=== PATIENT | female | born 1925 | race Caucasian/White ===

== ENCOUNTER 2017-03-31 15:22 | Inpatient (IN) | payer OTHER, BC ==
--- NOTE | 2017-03-31 16:21 | EDPHY ---
H & P Time Seen by Provider: 03/31/17 16:15 HPI/ROS: Chief complaint. Difficulty speaking HPI. 89-year-old female was discovered by her daughter to have difficulty speaking on the telephone 3 days ago. Her speech is better but continues to be slightly slurred. She had difficulty writing a letter 2 days ago and her hand writing head significantly changed. No leg symptoms or difficulty walking. No chest discomfort, trouble breathing, abdominal pain. No headache or change in vision. ROS Constitutional. no fever/chills, no weakness Eyes. no problems with vision ENT. no sore throat, no nasal drainage Cardiovascular. no chest pain Respiratory. no shortness of breath, no cough Abdominal. no abdominal pain, no nausea/vomiting, no diarrhea . no problems urinating MS. no calf pain/swelling, no neck/back pain, no joint pain Skin. no rash Lymph. no swollen glands Neuro. Slurred speech and difficulty writing with right hand Past Medical/Surgical History: Past medical history atrial fibrillation, hypertension, diabetes, heart valve replacement, previous CVA Social History: , nonsmoker, no alcohol Smoking Status: Never smoked Physical Exam: General Appearance: Alert well-developed female mild distress vital signs are stable Eyes: Pupils equal and round no pallor or injection. ENT, Mouth: Mucous membranes are moist. Respiratory: There are no retractions, lungs are clear to auscultation. Cardiovascular: Regular rate and rhythm. Gastrointestinal: Abdomen is soft and nontender, no masses, bowel sounds normal. Neurological: Awake and alert, sensory and motor exams grossly normal. Speech is fairly normal. Cranial nerves intact. There is no pronator drift. Some ataxia with the right pointer finger. Left [id number]-jd-[id number] is normal. Normal ubqb-ez-vwje bilaterally Skin: Warm and dry, no rashes. Musculoskeletal: Neck is supple nontender. Extremities symmetrical, full range of motion. Psychiatric: Patient is oriented X 3, there is no agitation. Constitutional: Initial Vital Signs Temperature (C) 36.2 C 03/31/17 15:26 Heart Rate 65 03/31/17 15:26 Respiratory Rate 16 03/31/17 15:26 Blood Pressure 182/61 H 03/31/17 15:26 O2 Sat (%) 95 03/31/17 15:26 O2 Delivery Mode Nasal Cannula Allergies/Adverse Reactions: niacin Allergy (Verified 03/31/17 15:30) Penicillins Allergy (Verified 03/31/17 15:30) Home Medications: Medication Instructions Recorded Escitalopram Oxalate 03/31/17 Furosemide [Lasix] 03/31/17 Metformin HCl [Metformin 1000 mg] 03/31/17 Metoprolol Tartrate [Lopressor 25 03/31/17 mg (*)] Potassium 03/31/17 Warfarin Sodium [Coumadin] 03/31/17 Medical Decision Making - Diagnostics EKG Interpretation: EKG interpreted by me shows normal sinus rhythm with normal interval. There is left axis deviation. LVH by voltage. No arrhythmia. No ST elevation or depression. Rate is 64 Imaging Results: Imaging Impressions Head CT 03/31/17 16:34 Impression: 1. Hypodensity in the left basal ganglia suggesting subacute infarct. If symptoms persist and clinical suspicion warrants, consider MRI. 2. Age-indeterminate infarct in the anterior right basal ganglia, possibly subacute or related to a small old lacunar infarct. 3. Diffuse cerebral atrophy with periventricular and subcortical low attenuation consistent with chronic microvascular ischemic gliosis. 3. Additional findings as above. Findings discussed with Dr. Zacarias Elena on 03/31/2017 at [address] shows what appears to be a subacute left basal ganglia infarct. No hemorrhage Procedures: IV normal saline, monitor ED Course/Re-evaluation: I consulted and discussed case with Dr. Castillo, neurology, who recommends admission due to subtherapeutic INR and further workup for carotid ultrasound and echo I consulted and discussed case with Dr. annie Swift, hospitalist, who agrees to the admission Re-evaluation 6:40 p.m. I discussed findings with the patient and her daughter. We discussed treatment plan including recommendation for admission. They expressed understanding and agreement Differential Diagnosis: CVA-- and I considered hemorrhagic as the patient is on Coumadin verses thrombotic. No evidence for intracranial bleeding - Data Points Laboratory Results: Laboratory Results 03/31/17 15:50 03/31/17 15:50 03/31/17 03/31/17 03/31/17 15:50 15:50 15:50 WBC 7.91 10^3/uL 10^3/uL (3.80-9.50) RBC 4.42 10^6/uL 10^6/uL (4.18-5.33) Hgb 12.9 g/dL g/dL (12.6-16.3) Hct 39.2 % % (38.0-47.0) MCV 88.7 fL fL (81.5-99.8) MCH 29.2 pg pg (27.9-34.1) MCHC 32.9 g/dL g/dL (32.4-36.7) RDW 14.0 % % (11.5-15.2) Plt Count 217 10^3/uL 10^3/uL (150-400) MPV 10.9 fL fL (8.7-11.7) Neut % (Auto) 46.4 % % (39.3-74.2) Lymph % (Auto) 33.4 % % (15.0-45.0) Thomas % (Auto) 11.6 % % (4.5-13.0) Eos % (Auto) 7.1 % % (0.6-7.6) Baso % (Auto) 1.1 % % (0.3-1.7) Nucleat RBC Rel Count 0.0 % % (0.0-0.2) Absolute Neuts (auto) 3.67 10^3/uL 10^3/uL (1.70-6.50) Absolute Lymphs (auto) 2.64 10^3/uL 10^3/uL (1.00-3.00) Absolute Monos (auto) 0.92 10^3/uL H 10^3/uL (0.30-0.80) Absolute Eos (auto) 0.56 10^3/uL H 10^3/uL (0.03-0.40) Absolute Basos (auto) 0.09 10^3/uL 10^3/uL (0.02-0.10) Absolute Nucleated RBC 0.00 10^3/uL 10^3/uL (0-0.01) Immature Gran % 0.4 % % (0.0-1.1) Immature Gran # 0.03 10^3/uL 10^3/uL (0.00-0.10) PT 21.7 SEC H SEC (12.0-15.0) INR 1.88 H (0.83-1.16) Sodium 140 mEq/L mEq/L (134-144) Potassium 5.2 mEq/L mEq/L (3.5-5.2) Chloride 106 mEq/L mEq/L (97-110) Carbon Dioxide 21 mEq/l L mEq/l (22-31) Anion Gap 13 mEq/L mEq/L (8-16) BUN 30 mg/dL H mg/dL (7-23) Creatinine 1.0 mg/dL mg/dL (0.6-1.0) Estimated GFR 52 Glucose 119 mg/dL H mg/dL (70-100) Calcium 9.1 mg/dL mg/dL (8.5-10.4) Troponin I < 0.012 ng/mL ng/mL (0-0.034) Departure - Departure Disposition: [facility] Inpatient Acute Clinical Impression: Acute ischemic stroke Condition: Fair Referrals: Rae Groves MD [Primary Care Provider] - As per Instructions
--- NOTE | 2017-03-31 16:25 | CPEKG ---
Heart Rate: 64 RR Interval: 938 P-R Interval: 168 QRSD Interval: 90 QT Interval: 484 QTC Interval: 500 P [place]: -7 QRS [place]: 5 T Wave [place]: 150 EKG Severity - ABNORMAL ECG - EKG Impression: SINUS RHYTHM EKG Impression: PROBABLE LEFT ATRIAL ABNORMALITY EKG Impression: LVH WITH SECONDARY REPOLARIZATION ABNORMALITY EKG Impression: BORDERLINE PROLONGED QT INTERVAL Electronically Signed By: Zacarias Elena 31-Mar-2017 17:15:22
[2017-03-31 16:39] LABS: % IMMATURE GRANULYOCYTES 0.4 % (0.0-1.1); ABSOLUTE IMMATURE GRANULOCYTES 0.03 10^3/uL (0.00-0.10); ADD DIFF? NO; ADD MORPH? NO; ADD SCAN? NO; ATYPICAL LYMPHOCYTE FLAG 0 (0-99); FRAGMENT RBC FLAG 0 (0-99); HEMATOCRIT 39.2 % (38.0-47.0); HEMOGLOBIN 12.9 g/dL (12.6-16.3); LEFT SHIFT FLG 0 (0-99); LIPEMIA HEMOLYSIS FLAG 80 (0-99); MEAN CELL HEMOGLOBIN 29.2 pg (27.9-34.1); MEAN CELL HEMOGLOBIN CONCENTR. 32.9 g/dL (32.4-36.7); MEAN CELL VOLUME 88.7 fL (81.5-99.8); MEAN PLATELET VOLUME 10.9 fL (8.7-11.7); PLATELET CLUMPS FLAG 10 (0-99); PLATELET COUNT 217 10^3/uL (150-400); RED BLOOD CELL COUNT 4.42 10^6/uL (4.18-5.33)
[2017-03-31 16:47] LABS: ANION GAP 13 mEq/L (8-16); CALCIUM 9.1 mg/dL (8.5-10.4); CARBON DIOXIDE 21 mEq/l (22-31); CHLORIDE 106 mEq/L (97-110); GLOMERULAR FILTRATION RATE 52; GLUCOSE 119 mg/dL (70-100); INR 1.88 (0.83-1.16); POTASSIUM 5.2 mEq/L (3.5-5.2); PROTIME(PATIENT) 21.7 SEC (12.0-15.0); SODIUM 140 mEq/L (134-144)
[2017-03-31 16:58] LABS: TROPONIN I < 0.012 ng/mL (0-0.034)
[2017-03-31] MEDS ORDERED: ACETAMINOPHEN 325 MG TAB PO PRN (20:10)
[2017-03-31] MEDS ORDERED: ONDANSETRON DISINTEGRATING 4 MG TAB PO PRN (20:10)
[2017-03-31] MEDS ORDERED: ONDANSETRON 4 MG/2 ML VIAL IVP PRN (20:10)
[2017-03-31] MEDS ORDERED: IOPAMIDOL (ISOVUE 370) 100 ML BTL IV ONE (20:28)
[2017-03-31] MEDS ORDERED: WARFARIN SODIUM 5 MG TAB PO SCH (20:30)
[2017-03-31] MEDS: METOPROLOL TARTRATE 100 MG TAB PO SCH (22:58)
[2017-03-31] MEDS: ENOXAPARIN 40 MG/0.4 ML SYR SC SCH (23:00)
[2017-04-01 05:51] LABS: INR 1.86 (0.83-1.16); PROTIME(PATIENT) 21.5 SEC (12.0-15.0)
[2017-04-01 05:56] LABS: ANION GAP 11 mEq/L (8-16); CARBON DIOXIDE 23 mEq/l (22-31); CHLORIDE 108 mEq/L (97-110); CHOLESTEROL 254 mg/dL (140-220); CHOLESTEROL/HDL RATIO 7.06 RATIO (1.00-4.44); GLOMERULAR FILTRATION RATE 52; GLUCOSE 107 mg/dL (70-100); HIGH DENSITY LIPOPROTEIN 36 mg/dL (40-85); NON-HIGH DENSITY LIPOPROTEIN 218 mg/dL (90-129); POTASSIUM 4.8 mEq/L (3.5-5.2); SODIUM 142 mEq/L (134-144)
[2017-04-01 06:06] LABS: TRIGLYCERIDE 408 mg/dL (35-135)
--- NOTE | 2017-04-01 06:46 | GHP ---
[f rep st] HISTORY AND PHYSICAL DATE OF ADMISSION: 03/31/2017 CHIEF COMPLAINT: Slurred speech and hand writing change. HISTORY: Angelina Helton is an 89-year-old female who noticed 2 days ago as she was doing a hand-written note to a family member that her hand writing had changed. It was small, scribbly, and illegible. She had always prided herself in her good handwriting. The next day, she told her daughter about this episode , and her daughter mentions that on the phone 3 days ago she had thought her speech was a little slurred and she was having difficulty talking. At this time , her speech has improved with some possible mild residual. Her handwriting is still abnormal. She denies any weakness in her arms or legs. She denies any neck pain. She denies any missed Coumadin doses. PAST MEDICAL HISTORY: 1. Atrial fibrillation. 2. Bioprosthetic aortic valve replacement 2014 in [place]. 3. Hypertension. 4. Diabetes type 2. 5. History of stroke. MEDICATIONS: Please see computer record for full detailed list. ALLERGIES: Niacin and penicillin. SOCIAL HISTORY: She quit smoking in 1956. No alcohol. She lives in independent living at [facility]. She moved here from [place] 15 months ago. REVIEW OF SYSTEMS: Complete review of systems obtained. Review of systems is negative regarding constitutional, HEENT, GI, pulmonary, cardiovascular, , hematology, skin, muscular, endocrine, psych except for positives and negatives as in HPI. FAMILY HISTORY: Reviewed and noncontributory to present complaint. PHYSICAL EXAMINATION: GENERAL: A well-developed, well-nourished female in no acute distress. VITAL SIGNS: Temperature is 36.4, pulse 60, blood pressure 165 /76, saturating 97% on room air. EYES: Normal conjunctivae, pupils react to light. ENT: Normal ears and nose. Hearing intact. Normal teeth. Oropharynx moist. NECK: Trachea midline. No thyromegaly. CHEST: Normal effort. LUNGS : Clear to auscultation bilaterally. CARDIOVASCULAR: Regular rhythm. No murmur. No lower extremity edema. ABDOMEN: Soft, nontender. No hepatosplenomegaly. SKIN: Warm, dry, intact. No rash. MUSCULOSKELETAL: No cyanosis or clubbing. Strength 5/5 upper and lower extremities. NEUROLOGIC: Cranial nerves intact. Normal sensation to light touch. PSYCH: The patient is alert and oriented x3. Normal affect. Normal judgment. Normal memory. LABORATORY DATA: White count 7.9, hematocrit 39.2, platelets 217. Sodium 140, potassium 5.2, chloride 106, bicarb 21, BUN 30, creatinine 1.0, glucose 119. Troponin is negative. INR is 1.88. IMAGING: EKG viewed by me. My personal interpretation is normal sinus rhythm, LVH with repolarization changes. Head CT shows a subacute infarct in the left basal ganglia. MRI of the brain shows an acute and subacute left thalamus stroke. Neck CT shows severe spinal stenosis at C5-C6. CTA of the head and neck otherwise unremarkable. ASSESSMENT/PLAN: 1. Subacute stroke. This is embolic due to her subtherapeutic INR. Will increase her warfarin. She was given a 1-time 40 mg dose of Lovenox tonight. We need to discuss with Neurology in the morning whether or not it will be safe to prescribe full-dose Lovenox as a bridge until her INR is therapeutic. We need Neurology to weigh her anticoagulation needs against the risk of hemorrhagic conversion of the current stroke. I suspect it is quite small and bridging therapy may be appropriate. We will check an echocardiogram. 2. Atrial fibrillation. Continue her oral metoprolol and anticoagulation as above. 3. Severe cervical spinal stenosis. This appears to be asymptomatic and an incidental finding on imaging. I would however consider Neurosurgery consultation. 4. Bioprosthetic aortic valve replacement. The echocardiogram will re- evaluate. CODE STATUS: She requests DNR. ADMISSION STATUS: 1. Will admit to inpatient. Anticipate greater than 2 midnights needed for stabilization. 2. DVT prophylaxis: Anticoagulation plan as above. /[id number]/MODL MTDD
[2017-04-01] MEDS ORDERED: ENOXAPARIN 40 MG/0.4 ML SYR SC SCH (09:00)
[2017-04-01] MEDS: METOPROLOL TARTRATE 100 MG TAB PO SCH ×2 (09:30→21:09)
[2017-04-01] MEDS: ESCITALOPRAM OXALATE 10 MG TAB PO SCH (09:30)
[2017-04-01] MEDS: ENOXAPARIN 40 MG/0.4 ML SYR SC SCH (09:30)
[2017-04-01] MEDS: WARFARIN SODIUM 3 MG TAB PO SCH (09:31)
[2017-04-01 09:48] LABS: HEMOGLOBIN A1C 6.6 % (4.0-6.0)
--- NOTE | 2017-04-01 11:03 | CPEKG ---
Heart Rate: 52 RR Interval: 1154 P-R Interval: 184 QRSD Interval: 90 QT Interval: 512 QTC Interval: 477 P [place]: 67 QRS [place]: 41 T Wave [place]: 165 EKG Severity - ABNORMAL ECG - EKG Impression: SINUS RHYTHM EKG Impression: PROBABLE LEFT ATRIAL ABNORMALITY EKG Impression: PROBABLE LVH WITH SECONDARY REPOL ABNRM Electronically Signed By: Cindy Grayson 01-Apr-2017 17:00:28
--- NOTE | 2017-04-01 11:26 | HOSPPROG ---
Hospitalist Progress Note Assessment/Plan: Patient is an 89-year-old female noticed 2 days prior to admission that her handwriting has changed. Had become eligible. She told her daughter about the episode and the daughter brought her in for further care today is my 1st encounter with the patient. Chart reviewed. * subacute stroke/thalamus stroke * possibly an embolic stroke due to her subtherapeutic INR * Will discuss with Neurology if okay to bridge the patient with Lovenox while she is subtherapeutic, main concern is of hemorrhagic conversion of the current stroke * Echocardiogram is pending * A1c is 6.6 with an average glucose of 143 * Triglycerides are elevated at 408, cholesterol is 254. LDL is not noted in the lab/unable to get this # due to high triglycerides/recommended a statin / daughter and patient want to think about it * Head CT shows a subacute infarct in the left basal ganglia * CTA of the head and neck overall unremarkable except for severe spinal stenosis at C5-C6 * hypertension uncontrolled add low dose norvasc will allow for permissive htn in the setting of a stroke * atrial fibrillation Reviewed the history monitor she is in sinus * bioprosthetic aortic valve replacement Echocardiogram pending *Plan: will await input from neurology Subjective: Angelina is feeling well/ has no complaints. Objective: Vital Signs Temp Pulse Resp BP Pulse Ox 36.7 C 61 16 191/43 H 92 04/01/17 09:04 04/01/17 09:30 04/01/17 09:04 04/01/17 09:30 04/01/17 09:04 Laboratory Results 04/01/17 05:03 03/31/17 04/01/17 04/02/17 05:59 05:59 05:59 Intake Total 150 300 Output Total 600 Balance -450 300 PT 21.5 SEC (12.0-15.0) H 04/01/17 05:03 INR 1.86 (0.83-1.16) H 04/01/17 05:03 - Physical Exam Constitutional: no apparent distress, appears nourished, not in pain Eyes: PERRL Ears, Nose, Mouth, Throat: hearing normal Cardiovascular: regular rate and rhythym Respiratory: no respiratory distress Skin: warm Musculoskeletal: full muscle strength Neurologic: AAOx3, sensation intact bilaterally, CN II-XII Intact, No pronator drift, No facial droop Psychiatric: interacting appropriately, not anxious, not encephalopathic ICD10 Worksheet Patient Problems: Problems Problem Status Onset Acute ischemic stroke Acute
[2017-04-01] MEDS ORDERED: ENOXAPARIN 60 MG/0.6 ML SYR SC SCH (14:30)
[2017-04-01] MEDS ORDERED: WARFARIN SODIUM 3 MG TAB PO SCH (16:00)
[2017-04-01] MEDS: ATORVASTATIN CALCIUM 10 MG TAB PO SCH (16:17)
[2017-04-01 16:32] LABS: ALBUMIN 3.8 g/dL (3.5-5.0); BILIRUBIN,TOTAL 0.6 mg/dL (0.1-1.4); BILIRUBIN-CONJUGATED 0.4 mg/dL (0.0-0.5); BILIRUBIN-UNCONJUGATED 0.2 mg/dL (0.0-1.1); TOTAL PROTEIN 6.3 g/dL (6.3-8.2)
--- NOTE | 2017-04-01 17:27 | ECHO ---
[id number] + + [address] : : [place] [address] : : [phone] + + Adult Echocardiographic Report + -----+ :Name: Tiera W[place] Date: 04/01/2017 07:50 AM : : Hospital Admission Number: [id number] Location : 362: :: 1925 Gender: Female Height: 66 in : :Age: 89 yrs Race: WH Weight: 142 lb : :Reason For Study: Ischemic stroke : : BSA: 1.7 meters2 : :History: TAVR : + -----+ MMode/2D Measurements \T\ Calculations IVSd: 1.1 cm LVIDd: 5.3 cm FS: 47.0 % Ao root diam: LVPWd: 1.0 cm LVIDs: 2.8 cm EDV(Teich): 3.3 cm 133.8 ml LA dimension: ESV(Teich): 4.1 cm 29.5 ml EF(Teich): 78.0 % LVLd ap4: 8.3 cm SV(MOD-sp4): EDV(MOD-sp4): 56.0 ml 84.0 ml LVLs ap4: 6.7 cm ESV(MOD-sp4): 28.0 ml EF(MOD-sp4): 66.7 % Normal Measurement Values: + + :LVIDd (3.5-5.7cm) IVSd (0.6-1.1cm) LVPWd (0.6-1.1cm) Aortic Root (2.0-3.7cm)Left Atrium (1.5-4.0cm): :LV Vol(d) (76-115ml) LV Vol(s) (29-48ml) Ejec Fraction (50-65%)PV Jeet (0.6- 1.2m/s) TV Jeet (0.4-1.0m/s) : :MV E Jeet (0.8-1.0m/s)MV A Jeet (0.3-1.0m/s)LVOT Jeet (0.7-1.2m/s) Asc Ao Jeet ( 0.9-1.8m/s) : + + Doppler Measurements \T\ Calculations MV E max jeet: Ao mean PG: AI max jeet: LV V1 mean P.5 cm/sec 12.5 mmHg 437.1 cm/sec 3.5 mmHg MV A max jeet: Ao V2 mean: AI max P.4 mmHg LV V1 mean: 139.2 cm/sec 168.8 cm/sec AI dec slope: 89.9 cm/sec MV E/A: 0.56 Ao V2 VTI: 70.7 cm264.6 cm/sec2 LV V1 VTI: AI P1/2t: 483.9 msec 36.7 cm TR max jeet: 286.4 cm/sec TR max P.8 mmHg RAP systole: 10.0 mmHg RVSP(TR): 42.8 mmHg Left Ventricle The left ventricle is normal in size. There is mild concentric left ventricular hypertrophy. Left ventricular systolic function is normal. Ejection Fraction = 60-65%. There is Doppler evidence for diastolic dysfunction. No regional wall motion abnormalities noted. Right Ventricle The right ventricle is normal in size and function. Atria The left atrium is moderately dilated. Right atrial size is normal. Injection of contrast documented no interatrial shunt. Mitral Valve Calcified mitral apparatus. There is no evidence of mitral valve prolapse. There is no mitral valve stenosis. There is mild mitral regurgitation. Tricuspid Valve Normal tricuspid valve. There is mild tricuspid regurgitation. Right ventricular systolic pressure is 38-43mmHg. Aortic Valve Mild valvular aortic stenosis. AV max PG is 25mmHG. AV mean PG is 13mmHG. Moderate aortic regurgitation. There is a bioprosthetic aortic valve. Pulmonic Valve The pulmonic valve is normal in structure and function. Mild pulmonic valvular regurgitation. Great Vessels The aortic root is normal size. Pericardium/Pleural There is no pericardial effusion. Conclusion A complete two-dimensional transthoracic echocardiogram was performed (2D, M-mode, Doppler and color flow Doppler). Left ventricular systolic function is normal. Ejection Fraction = 60-65%. There is mild concentric left ventricular hypertrophy. There is Doppler evidence for diastolic dysfunction. The left atrium is moderately dilated. There is a bioprosthetic aortic valve. (TAVR from 2015.) Mild valvular aortic stenosis. AV max PG is 25mmHG. AV mean PG is 13mmHG. Moderate aortic regurgitation which is paravalvular. Calcified mitral apparatus. There is mild mitral regurgitation. There is mild tricuspid regurgitation. Right ventricular systolic pressure is 38-43mmHg. Mild pulmonic valvular regurgitation. Injection of agitated saline contrast documented no intracardiac shunt. Final Reading Physician: Cinda Guzman signed on 04/01/2017 05:26 PM Ordering Physician: Ronda Son Performed By: Danna Monsalve, PAL
[2017-04-01] MEDS: ENOXAPARIN 60 MG/0.6 ML SYR SC SCH (21:08)
--- NOTE | 2017-04-01 21:18 | GCON ---
[f rep st] CONSULTATION DATE OF CONSULTATION: 04/01/2017 REFERRING PHYSICIAN: Dr. Casey CHIEF COMPLAINT: Stroke. BILLING INFORMATION: 50 minutes total floor time today, over 50% in counseling patient, reviewing records, literature, and neuroimaging. HISTORY OF PRESENT ILLNESS: This patient is a very pleasant 89-year-old lady with known paroxysmal atrial fibrillation on chronic oral anticoagulation with Coumadin. Last , she had onset of slurred speech noticed by her daughter, which slowly improved. She was brought to the emergency department yesterday for these symptoms. Ultimately, she had a brain MRI which confirmed a subacute left thalamic infarct. She did not have any other symptoms, such as right-sided hemianesthesia or paresis. Her symptoms are almost completely resolved now. On examination in the emergency department, her INR was found to be subtherapeutic at 1.88. Therefore she was admitted for correction of her INR. CT of the head and neck showed no acute vascular findings. Blood pressure has been somewhat elevated up to the 190s, but then back into the 150s here. Total cholesterol is elevated, LDL unmeasurable, triglycerides 408. PAST MEDICAL HISTORY: AFib, dyslipidemia, hypertension. MEDICATIONS: Please see EHR for full list. ALLERGIES: Niacin, penicillin. SOCIAL HISTORY: Quit smoking in 1956. Lives in independent living at [facility]. REVIEW OF SYSTEMS: Ten-point review of systems was done and only pertinent to the HPI. FAMILY HISTORY: Reviewed and noncontributory. PHYSICAL EXAMINATION: VITAL SIGNS: Blood pressure 151 systolic over 76, heart rate 61, temperature 36.6. GENERAL: No acute distress. Very pleasant lady. MENTAL FUNCTION: She is lucid, no aphasia. Cranial nerve exam, normal facial expression, no facial weakness on exam, normal extraocular movements. No dysarthria on exam today. On motor exam, she has no focal weakness. Sensory exam normal to light touch throughout. Coordination normal in upper and lower extremities. IMPRESSION/PLAN: 1. Subacute left thalamic infarct. 2. Paroxysmal atrial fibrillation on oral anticoagulation. 3. Subtherapeutic INR. 4. Hypertension. This patient may have had this infarct from a subtherapeutic INR related to her underlying paroxysmal atrial fibrillation. Certainly, uncontrolled hypertension can lead to lacunar-type infarcts as well. Discussed at length with the patient. My overall recommendation is correction of her INR to 2 to 3 with adjustment of warfarin. As the stroke did occur 3 days ago and is small in size, we can go ahead and start hrm-ulwwqfzcy-itteln heparin to bridge her until she is therapeutic on her INR and discharge her home. My other main recommendation is tight control of her blood pressure to minimize recurrence of any small vessel disease. Oral anticoagulation is sufficient in terms of vascular prophylaxis for both types of events outside of controlling hypertension. She also has been recommended to start statin therapy for her dyslipidemia. She is agreeable. She will likely discharge later today. No further recommendations. The risks, benefits and scientific literature of adding aspirin to warfarin was discussed with the patient as well. Based on the data and her specific clinical presentation, we decided together to stay of therapeutic oral anticoagulation alone. This is reasonable. Thank you for this consultation. /[id number]/MODL MTDD
[2017-04-02 06:13] LABS: INR 1.98 (0.83-1.16); PROTIME(PATIENT) 22.6 SEC (12.0-15.0)
[2017-04-02 07:28] VITALS: RESP 18
--- NOTE | 2017-04-02 08:12 | HOSPPROG ---
Hospitalist Progress Note Assessment/Plan: Patient is an 89-year-old female noticed 2 days prior to admission that her handwriting has changed. Had become eligible. She told her daughter about the episode and the daughter brought her in for further care. * subacute left thalamic stroke * possibly an embolic stroke due to her subtherapeutic INR or from htn * Will discuss with Neurology if okay to bridge the patient with Lovenox while she is subtherapeutic, main concern is of hemorrhagic conversion of the current stroke * Echocardiogram shows no intracardiac shunt * A1c is 6.6 with an average glucose of 143 * Triglycerides are elevated at 408, cholesterol is 254. LDL is not noted in the lab/unable to get this # due to high triglycerides/statin * Head CT shows a subacute infarct in the left basal ganglia * CTA of the head and neck overall unremarkable except for severe spinal stenosis at C5-C6 * hypertension uncontrolled increased norvasc dose * atrial fibrillation Reviewed the history monitor she is in sinus * bioprosthetic aortic valve replacement *Plan: dc today/ bridge therapy for another few days until INR is >2 Subjective: Angelina is tired, didn't sleep well. Objective: Vital Signs Temp Pulse Resp BP Pulse Ox 36.7 C 53 L 18 180/54 H 95 04/02/17 07:27 04/02/17 07:27 04/02/17 07:27 04/02/17 07:27 04/02/17 07:27 Laboratory Results 04/01/17 05:03 04/01/17 04/02/17 04/03/17 05:59 05:59 05:59 Intake Total 150 1100 Output Total 600 500 Balance -450 600 PT 22.6 SEC (12.0-15.0) H 04/02/17 05:26 INR 1.98 (0.83-1.16) H 04/02/17 05:26 - Physical Exam Constitutional: no apparent distress, appears nourished, not in pain Eyes: PERRL Ears, Nose, Mouth, Throat: hearing normal Cardiovascular: regular rate and rhythym Respiratory: no respiratory distress Skin: warm Musculoskeletal: full muscle strength Neurologic: AAOx3, CN II-XII Intact, No facial droop Psychiatric: interacting appropriately ICD10 Worksheet Patient Problems: Problems Problem Status Onset Acute ischemic stroke Acute
[2017-04-02] MEDS: WARFARIN SODIUM 3 MG TAB PO SCH (09:16)
[2017-04-02] MEDS: METOPROLOL TARTRATE 100 MG TAB PO SCH (09:16)
[2017-04-02] MEDS: ATORVASTATIN CALCIUM 10 MG TAB PO SCH (09:16)
[2017-04-02] MEDS: ESCITALOPRAM OXALATE 10 MG TAB PO SCH (09:16)
[2017-04-02] MEDS: ENOXAPARIN 60 MG/0.6 ML SYR SC SCH (09:18)
--- NOTE | 2017-04-02 12:09 | PDIAF ---
- Diagnosis Diagnosis: CVA Code Status: Do Not Resuscitate - Medication Management Discharge Medications: Medications to Continue on Transfer Escitalopram Oxalate [Lexapro] 2.5 mg PO DAILY 03/31/17 [Last Taken 03/31/17] Furosemide [Lasix 20 MG (*)] 20 mg PO DAILY 03/31/17 [Last Taken 03/31/17] Metoprolol Tartrate [Lopressor 100 mg (*)] 100 mg PO BID 03/31/17 [Last Taken 09:00 1 tab] Potassium Chloride [Klor-Con 10] 10 meq PO DAILY 03/31/17 [Last Taken 03/31/17] metFORMIN HCL [Metformin HCl] 500 mg PO BID 03/31/17 [Last Taken 03/31/17 09:00 1 tab] Acetaminophen [Tylenol 325mg (*)] 650 mg PO Q4HRS PRN #0 tab 04/02/17 [Last Taken Unknown] Atorvastatin Calcium [Lipitor 10 mg (*)] 10 mg PO DAILY #30 tab 04/02/17 [Last Taken Unknown] Enoxaparin [Lovenox 60 MG (*)] 60 mg SC BID #6 syr 04/02/17 [Last Taken Unknown] Warfarin Sodium [Coumadin] 6 mg PO DAILY #30 tablet 04/02/17 [Last Taken Unknown ] amLODIPine BESYLATE [Norvasc 2.5 mg (*)] 5 mg PO DAILY #30 tab 04/02/17 [Last Taken Unknown] Discharge Medications: Refer to the Discharge Home Medication list for PRN reason. - Orders Services needed: Home Care, Registered Nurse Home Care Face to Face: I certify that this patient was under my care and that I had the required [id number] encounter meeting the encounter requirements on the discharge day. My findings support the fact that the patient is homebound as defined in CMS Chapter 7 Medicare Benefits Manual 30.1.1, The condition of the patient is such that there exists a normal inability to leave home and consequently, leaving home would require a considerable and taxing effort. Diet Recommendation: ADA 1800 consistent carb Diet Texture: Regular Texture Diet Additional: Patient needs bridge therapy with lovenox/this will be bid sub q until inr is >2 for 2 days. She needs help with the injections. Check bp daily / had been very hypertensive. - Labs/Radiology PT/INR Date: 04/04/17 (daily till therapeutic) - Follow Up Care Current Providers and Referrals: Rae Groves MD [Primary Care Provider] - As per Instructions
--- NOTE | 2017-04-02 13:20 | GDS ---
[f rep st] DISCHARGE SUMMARY DISCHARGE DIAGNOSES: 1. Subacute left thalamic stroke. 2. Hypertension. 3. Atrial fibrillation. 4. Bioprosthetic aortic valve replacement. CONSULTATIONS: Dr. Duncan Castillo with neurology. Briefly, the patient is an 89-year-old woman who noticed 2 days ago that her handwriting had changed ; it became scribbly and illegible. She told her daughter about this episode, and the daughter brou ght her to the emergency room for further evaluation. She had a head CT, which showed a subacute in farct in the left basal ganglia. An MRI of the brain showed an acute and subacute left thalamus str stalin. Her neck CT showed severe spinal stenosis at C5-C6. CT of the head and neck otherwise were un remarkable. In addition, she had an echocardiogram that showed no intracardiac shunt. She has been monitored during her stay. On the industrial editor, she has been in sinus rhythm. She will furth er follow up with her doctor in the outpatient setting. HOSPITAL COURSE PER PROBLEM: 1. Subacute left thalamic stroke, could be possibly an embolic stroke due to her subtherapeutic INR or from hypertension. In the meantime, she will be bridge therapy with low molecular weight hepari n. Her hemoglobin A1c is 6.6 with an average glucose of 143. She is on metformin. Recommended fallon t she eat a low carbohydrate diet. In addition, her triglycerides are elevated at 408 and cholester ol is 254. LDL is not noted because of the high triglycerides. Statin therapy has been initiated. 2. Hypertension. This has been uncontrolled. Her Norvasc dose has been increased today. 3. Atrial fibrillation. I reviewed her on the monitor. She has been in sinus rhythm throughout he r stay. 4. Bioprosthetic aortic valve replacement, stable. CONDITION AT DISCHARGE: Stable. Blood pressure is 170/45, heart rate is 60, respiratory rate is 18 , O2 sats on room air 95%, temperature is 36.7 Celsius. MEDICATIONS AT DISCHARGE: Please see the EMR. DISCHARGE INSTRUCTIONS: 1. To stay on the Lovenox until her INR is greater than 2 for 2 days. 2. Recommend that she increase her dose of Coumadin. 3. Lipitor and Norvasc are new medications for her. Recommended that she check her blood pressure daily with a goal blood pressure of 140/90. 4. In addition, I have spoken to Dr. Rae Groves's nurse who will update her on the plan of care. Recommended the patient get her INR checked in 1-2 days. Greater than 30 minutes discharging and coordinating care. /[id number]/MODL
[2017-04-02 14:22] VITALS: BP 128/48; PULSE 51; TEMP 98.6; O2SAT 92
== END 2017-04-02 13:47 | disposition home health service (06) | DRG 66 ==
LOC: OBSVTOIN 18:46 → F3N 22:10
PROVIDERS: ADMIT Hospitalist; ATTEND Hospitalist
DX: I63.9 Cerebral infarction, unspecified (principal); R79.1 Abnormal coagulation profile; T45.515A Adverse effect of anticoagulants, initial encounter; I48.0 Paroxysmal atrial fibrillation; E11.9 Type 2 diabetes mellitus without complications; I10 Essential (primary) hypertension; Z95.2 Presence of prosthetic heart valve; Z79.01 Long term (current) use of anticoagulants; Z86.73 Personal history of transient ischemic attack (TIA), and cerebral infarction without residual deficits
CPT/HCPCS: 92523-GN; 97116-GP; 97161-GP; 97165-GO; G8978-GP-CI; G8979-GP-CI; G8980-GP-CI; G8987-GO-CI; G8988-GO-CI; G8989-GO-CI; G9165-GN-CH; G9166-GN-CH; G9167-GN-CH; J1650; Q9967

== ENCOUNTER 2017-05-09 17:48 | Emergency (ER) | payer OTHER, BC ==
--- NOTE | 2017-05-09 18:21 | CPEKG ---
Heart Rate: 57 RR Interval: 1053 P-R Interval: 176 QRSD Interval: 88 QT Interval: 504 QTC Interval: 491 P Hollins: 52 QRS Hollins: 15 T Wave Hollins: 165 EKG Severity - ABNORMAL ECG - EKG Impression: SINUS RHYTHM EKG Impression: PROBABLE LEFT ATRIAL ABNORMALITY EKG Impression: LVH WITH SECONDARY REPOLARIZATION ABNORMALITY EKG Impression: BORDERLINE PROLONGED QT INTERVAL Electronically Signed By: Zacarias Elena 09-May-2017 21:03:54
[2017-05-09 18:56] VITALS: O2SAT 94
[2017-05-09 19:04] LABS: % IMMATURE GRANULYOCYTES 0.4 % (0.0-1.1); ABSOLUTE IMMATURE GRANULOCYTES 0.03 10^3/uL (0.00-0.10); ADD DIFF? NO; ADD MORPH? NO; ADD SCAN? NO; ATYPICAL LYMPHOCYTE FLAG 10 (0-99); FRAGMENT RBC FLAG 0 (0-99); HEMATOCRIT 37.1 % (38.0-47.0); HEMOGLOBIN 12.5 g/dL (12.6-16.3); LEFT SHIFT FLG 0 (0-99); LIPEMIA HEMOLYSIS FLAG 80 (0-99); MEAN CELL HEMOGLOBIN 29.8 pg (27.9-34.1); MEAN CELL HEMOGLOBIN CONCENTR. 33.7 g/dL (32.4-36.7); MEAN CELL VOLUME 88.5 fL (81.5-99.8); MEAN PLATELET VOLUME 11.3 fL (8.7-11.7); PLATELET CLUMPS FLAG 10 (0-99); PLATELET COUNT 195 10^3/uL (150-400); RED BLOOD CELL COUNT 4.19 10^6/uL (4.18-5.33); RED CELL DISTRIBUTION WIDTH 13.5 % (11.5-15.2)
--- NOTE | 2017-05-09 19:06 | EDPHY ---
H & P Time Seen by Provider: 05/09/17 18:06 HPI/ROS: Chief complaint. High blood pressure HPI. 89-year-old female with history of hypertension had an elevated blood pressure earlier today of 210/55. She had no symptoms with this. No headache, visual change, chest discomfort, trouble breathing, abdominal pain. No focal weakness or paresthesias. She has been taking her blood pressure medication. She called her physician who recommended she come to the emergency department. She has no symptoms now. ROS Constitutional. High blood pressure Eyes. no problems with vision ENT. no sore throat, no nasal drainage Cardiovascular. no chest pain Respiratory. no shortness of breath, no cough Abdominal. no abdominal pain, no nausea/vomiting, no diarrhea . no problems urinating MS. no calf pain/swelling, no neck/back pain, no joint pain Skin. no rash Lymph. no swollen glands Neuro. no headache, no dizziness, no difficulty walking or with speech Past Medical/Surgical History: Past medical history CVA, hypertension, dyslipidemia, diabetes Social History: nonsmoker no alcohol Smoking Status: Never smoked Physical Exam: General Appearance: Alert well-developed female no distress vital signs significant for initial blood pressure 210/55 Eyes: Pupils equal and round no pallor or injection. ENT, Mouth: Mucous membranes are moist. Respiratory: There are no retractions, lungs are clear to auscultation. Cardiovascular: Regular rate and rhythm. Gastrointestinal: Abdomen is soft and nontender, no masses, bowel sounds normal. Neurological: Awake and alert, sensory and motor exams grossly normal. Skin: Warm and dry, no rashes. Musculoskeletal: Neck is supple nontender. Extremities symmetrical, full range of motion. Psychiatric: Patient is oriented X 3, there is no agitation. Constitutional: Initial Vital Signs Temperature (C) 36.6 C 05/09/17 17:49 Heart Rate 65 05/09/17 17:49 Respiratory Rate 18 05/09/17 17:49 Blood Pressure 210/55 H 05/09/17 17:49 O2 Sat (%) 97 05/09/17 17:49 O2 Delivery Mode Room Air Allergies/Adverse Reactions: niacin Allergy (Verified 03/31/17 15:30) Penicillins Allergy (Verified 03/31/17 15:30) Home Medications: Medication Instructions Recorded Escitalopram Oxalate [Lexapro] 2.5 mg PO DAILY 03/31/17 Furosemide [Lasix 20 MG (*)] 20 mg PO DAILY 03/31/17 Metoprolol Tartrate [Lopressor 100 100 mg PO BID 03/31/17 mg (*)] Potassium Chloride [Klor-Con 10] 10 meq PO DAILY 03/31/17 metFORMIN HCL [Metformin HCl] 500 mg PO BID 03/31/17 Acetaminophen [Tylenol 325mg (*)] 650 mg PO Q4HRS PRN #0 tab 04/02/17 Atorvastatin Calcium [Lipitor 10 10 mg PO DAILY #30 tab 04/02/17 mg (*)] Enoxaparin [Lovenox 60 MG (*)] 60 mg SC BID #6 syr 04/02/17 Warfarin Sodium [Coumadin] 6 mg PO DAILY #30 tablet 04/02/17 amLODIPine BESYLATE [Norvasc 2.5 5 mg PO DAILY #30 tab 04/02/17 mg (*)] Medical Decision Making - Diagnostics EKG Interpretation: EKG interpreted by me shows normal sinus rhythm with normal interval. There is left axis deviation. QRS is otherwise normal there is no significant ST elevation or depression. LVH by voltage. No arrhythmia. Rate is 57 Procedures: IV normal saline. Repeat blood pressure is now 151/69 ED Course/Re-evaluation: Re-evaluation again at 7:45 p.m.. Patient's blood pressure is 175/46. She has no complaints she is stable. Patient and I discussed treatment plan including EKG lab findings. We discussed importance of follow-up and further evaluation. She expresses understanding and agreement Differential Diagnosis: I considered hypertensive urgency, essential hypertension, isolated systolic hypertension. - Data Points Laboratory Results: Laboratory Results 05/09/17 18:55 05/09/17 18:55 05/09/17 05/09/17 05/09/17 18:55 18:55 18:55 WBC 7.76 10^3/uL 10^3/uL (3.80-9.50) RBC 4.19 10^6/uL 10^6/uL (4.18-5.33) Hgb 12.5 g/dL L g/dL (12.6-16.3) Hct 37.1 % L % (38.0-47.0) MCV 88.5 fL fL (81.5-99.8) MCH 29.8 pg pg (27.9-34.1) MCHC 33.7 g/dL g/dL (32.4-36.7) RDW 13.5 % % (11.5-15.2) Plt Count 195 10^3/uL 10^3/uL (150-400) MPV 11.3 fL fL (8.7-11.7) Neut % (Auto) 49.6 % % (39.3-74.2) Lymph % (Auto) 32.1 % % (15.0-45.0) [place] % (Auto) 11.1 % % (4.5-13.0) Eos % (Auto) 5.8 % % (0.6-7.6) Baso % (Auto) 1.0 % % (0.3-1.7) Nucleat RBC Rel Count 0.0 % % (0.0-0.2) Absolute Neuts (auto) 3.85 10^3/uL 10^3/uL (1.70-6.50) Absolute Lymphs (auto) 2.49 10^3/uL 10^3/uL (1.00-3.00) Absolute Monos (auto) 0.86 10^3/uL H 10^3/uL (0.30-0.80) Absolute Eos (auto) 0.45 10^3/uL H 10^3/uL (0.03-0.40) Absolute Basos (auto) 0.08 10^3/uL 10^3/uL (0.02-0.10) Absolute Nucleated RBC 0.00 10^3/uL 10^3/uL (0-0.01) Immature Gran % 0.4 % % (0.0-1.1) Immature Gran # 0.03 10^3/uL 10^3/uL (0.00-0.10) PT 21.4 SEC H SEC (12.0-15.0) INR 1.85 H (0.83-1.16) APTT 38.1 SEC H SEC (23.0-38.0) Sodium 137 mEq/L mEq/L (134-144) Potassium 4.6 mEq/L mEq/L (3.5-5.2) Chloride 104 mEq/L mEq/L (97-110) Carbon Dioxide 21 mEq/l L mEq/l (22-31) Anion Gap 12 mEq/L mEq/L (8-16) BUN 28 mg/dL H mg/dL (7-23) Creatinine 1.0 mg/dL mg/dL (0.6-1.0) Estimated GFR 52 Glucose 118 mg/dL H mg/dL (70-100) Calcium 9.3 mg/dL mg/dL (8.5-10.4) Departure - Departure Disposition: Home, Routine, Self-Care Clinical Impression: Hypertension Qualifiers: Hypertension type: essential hypertension Qualified Code(s): I10 - Essential ( primary) hypertension Condition: Good Instructions: Hypertension (ED) Additional Instructions: Continue regular medications. Return for worsening symptoms. Follow up with your regular physician next week for further blood pressure assessment and possible change in medication Referrals: Rae Groves MD [Primary Care Provider] - 5-7 days, call for appt.
[2017-05-09 19:13] LABS: INR 1.85 (0.83-1.16); PROTIME(PATIENT) 21.4 SEC (12.0-15.0)
[2017-05-09 19:14] LABS: APTT 38.1 SEC (23.0-38.0)
[2017-05-09 19:38] LABS: ANION GAP 12 mEq/L (8-16); CALCIUM 9.3 mg/dL (8.5-10.4); CARBON DIOXIDE 21 mEq/l (22-31); CHLORIDE 104 mEq/L (97-110); GLOMERULAR FILTRATION RATE 52; GLUCOSE 118 mg/dL (70-100); POTASSIUM 4.6 mEq/L (3.5-5.2); SODIUM 137 mEq/L (134-144)
[2017-05-09 19:59] VITALS: BP 170/114; PULSE 55; RESP 20; TEMP 98.1
== END 2017-05-09 20:08 | disposition home or self-care (01) ==
DX: I10 Essential (primary) hypertension (principal); E11.9 Type 2 diabetes mellitus without complications; Z86.73 Personal history of transient ischemic attack (TIA), and cerebral infarction without residual deficits; Z79.84 Long term (current) use of oral hypoglycemic drugs; Z79.01 Long term (current) use of anticoagulants